=== PATIENT | female | born 1965 | race Caucasian/White ===

== ENCOUNTER 2022-01-28 05:47 | Observation (INO) ==
[2022-01-28] MEDS ORDERED: Famotidine IV 10 MG/ML 2 ml VIAL (20 mg) IV ONE (06:00)
[2022-01-28] MEDS ORDERED: Buffered Lidocaine 1% SYRIN 1 ml INTRADERM ONE (06:00)
[2022-01-28] MEDS ORDERED: Scopolamine 1 mg/72hr PATCH TRANSDERM ONE (06:00)
[2022-01-28] MEDS ORDERED: Lactated Ringers 1000 ml BAG 1,000 ML IV SCH ×2 (06:00→17:00)
[2022-01-28] MEDS ORDERED: Clindamycin 900 MG/D5W BAG 900 MG/50 ML BAG IVPB ONE (06:03)
[2022-01-28] MEDS ORDERED: Famotidine IV 10 MG/ML 2 ml VIAL (20 mg) ONE (06:03)
[2022-01-28] MEDS ORDERED: Scopolamine 1 mg/72hr PATCH ONE (06:03)
[2022-01-28] MEDS ORDERED: Midazolam 2 mg/2 ml VIAL 1 mg/ml 2 ml VIAL (2 mg) ONE ×2 (06:49→06:55)
[2022-01-28] MEDS ORDERED: fentaNYL 100 mcg/2 ml 50 MCG/ML VIAL ONE ×4 (06:49→14:24)
[2022-01-28] MEDS ORDERED: Sevoflurane BOTTLE ONE (06:50)
[2022-01-28] MEDS ORDERED: Ondansetron 4 mg VIAL 2 MG/ML 2 ml VIAL ONE (06:50)
[2022-01-28] MEDS ORDERED: EPHEDrine (Pressors) 50 MG/ML VIAL ONE (06:50)
[2022-01-28] MEDS ORDERED: Propofol 10 MG/ML 20 ML BTL ONE ×2 (06:50→09:41)
[2022-01-28] MEDS ORDERED: Sterile Water for Inj 10 ML ONE (06:50)
[2022-01-28] MEDS ORDERED: Lidocaine 2% PF 5 ML VIAL ONE (06:50)
[2022-01-28] MEDS ORDERED: Dexamethasone IV 4 MG/ML VIAL 1 ml VIAL ONE (06:50)
[2022-01-28] MEDS ORDERED: ROPIVACAINE 5 MG/ML 30 ML BTL (0.5%) ONE ×2 (06:59→07:00)
[2022-01-28] MEDS ORDERED: Bupivacaine 0.5% 50 ML MDV VIAL ONE (07:00)
[2022-01-28] MEDS ORDERED: Rocuronium 50 mg VIAL 10 mg/ml 5 ml VIAL (50 mg) ONE ×2 (07:21→08:33)
[2022-01-28] MEDS ORDERED: Phenylephrine 40 mcg/mL 10mL (400mcg) SYRINGE ONE (08:16)
[2022-01-28] MEDS ORDERED: Acetaminophen IV 1 GM/100ML 100 ML IV ONE (08:29)
[2022-01-28] MEDS ORDERED: Morphine 4 MG/ML VIAL (1 ml) IV PRN (08:37)
[2022-01-28] MEDS ORDERED: Prochlorperazine 5 mg/ml 2 ml VIAL (10 mg) IV PRN (08:37)
[2022-01-28] MEDS ORDERED: Naloxone 0.4 mg VIAL 0.4 mg/ml 1 ml VIAL IV PRN (08:37)
[2022-01-28] MEDS: fentaNYL 100 mcg/2 ml 50 MCG/ML VIAL IV PRN ×3 (11:20→14:25)
[2022-01-28] MEDS ORDERED: Ondansetron 4 mg VIAL 2 MG/ML 2 ml VIAL IV PRN (16:29)
[2022-01-28] MEDS ORDERED: Ondansetron ODT 4 mg TAB 4 MG TAB PO PRN (16:29)
[2022-01-28] MEDS ORDERED: Lactulose 30 ml UDC PO PRN (16:29)
[2022-01-28] MEDS ORDERED: Magnesium Hydroxide LIQ 30 ML UDC PO PRN (16:29)
[2022-01-28] MEDS ORDERED: Dextrose 50% Syringe 50 ml 25 GM/50 ML SYRINGE IV PUSH PRN (16:46)
[2022-01-28] MEDS: Clindamycin 600 MG/D5W BAG 600 MG/50 ML BAG IV SCH (17:56)
[2022-01-28] MEDS ORDERED: Albuterol HFA INHALER 8 gm MDI INH PRN (17:59)
[2022-01-28] MEDS: Mometasone/Formoter 100/5 MDI INH SCH (20:30)
[2022-01-28] MEDS ORDERED: Pitavastatin 2 mg TAB (NF) PO SCH (21:00)
[2022-01-28] MEDS: Magnesium Hydroxide LIQ 30 ML UDC PO SCH (21:46)
[2022-01-29] MEDS: Clindamycin 600 MG/D5W BAG 600 MG/50 ML BAG IV SCH (01:01)
[2022-01-29] MEDS: Mometasone/Formoter 100/5 MDI INH SCH (07:01)
[2022-01-29 07:06] LABS: Hematocrit 34 % (35-47); Hemoglobin 11.5 g/dL (12.0-16.0); Mean Platelet Volume 8.6 fL (7.4-10.4); Platelet Count 263 10^3/uL (150-450)
[2022-01-29 07:13] LABS: Calcium 8.7 mg/dL (8.6-10.3); Potassium 4.3 mmol/L (3.5-5.0); eGFR CKD-EPI 78.3 (>60)
[2022-01-29] MEDS ORDERED: Cholecalciferol (VIT D3) 400 units TAB PO SCH (09:00)
[2022-01-29] MEDS ORDERED: Vitamin THERAPEUTIC TAB PO SCH (09:00)
[2022-01-29] MEDS ORDERED: DULoxetine DR 60 mg CAP PO SCH (09:00)
[2022-01-29] MEDS: Magnesium Hydroxide LIQ 30 ML UDC PO SCH (10:09)
[2022-01-29] MEDS: Clindamycin 600 MG/D5W BAG IV SCH ×2 (10:11→16:27)
[2022-01-29 15:20] VITALS: BP 115/73
== END 2022-01-29 17:10 | disposition home or self-care (01) ==
LOC: OR 05:47 → INTOOBSV 15:11 → SSU 15:11
PROVIDERS: ADMIT Orthopaedic Surgery; ATTEND Orthopaedic Surgery